=== PATIENT | female | born 1950 | race Caucasian/White ===

== ENCOUNTER 2022-03-01 02:21 | Emergency (ER) | payer MEDICARE, OTHER ==
[2022-03-01] MEDS ORDERED: EPINEPHrine 1 MG/ML SDV ONE (02:22)
[2022-03-01] MEDS ORDERED: Famotidine 20 MG Tab PO ONE (02:27)
[2022-03-01] MEDS ORDERED: diphenhydrAMINE 50 MG/ML SDV IVPUSH ONE (02:27)
[2022-03-01] MEDS ORDERED: methylPREDNISolone Sodium Succinate 125 MG/2 ML SDV IVPUSH ONE (02:28)
== END 2022-03-01 03:30 | disposition home or self-care (01) ==
LOC: MW.ED 02:21
DX: T78.40XA Allergy, unspecified, initial encounter (principal)
CPT/HCPCS: 96374; 96375; 99283; 99283-25; A9270-GY; J1200; J2930

== ENCOUNTER 2022-03-01 23:18 | Emergency (ER) | payer MEDICARE, OTHER ==
[2022-03-01] MEDS ORDERED: methylPREDNISolone Sodium Succinate 125 MG/2 ML SDV IVPUSH ONE (23:31)
[2022-03-01] MEDS ORDERED: diphenhydrAMINE 50 MG/ML SDV IVPUSH ONE (23:31)
[2022-03-02] MEDS ORDERED: diphenhydrAMINE 50 MG/ML SDV IVPUSH ONE (00:33)
[2022-03-02] MEDS ORDERED: Famotidine 20 MG Tab PO ONE (00:33)
== END 2022-03-02 01:26 | disposition home or self-care (01) ==
LOC: MW.ED 23:18
DX: T78.40XA Allergy, unspecified, initial encounter (principal); Z88.0 Allergy status to penicillin; Z88.8 Allergy status to other drugs, medicaments and biological substances
CPT/HCPCS: 96374; 96375; 96376; 99283; A9270; J1200; J2930